=== PATIENT | female | born 2000 | race Caucasian/White ===

== ENCOUNTER 2020-07-23 08:40 | Emergency (ER) | payer OTHER ==
[~2020-07-23] VITALS: Ht 160 cm; Wt 60.9 kg
[2020-07-23 08:50] VITALS: BP 110/75; TEMP 98.1
[2020-07-23 09:29] LABS: BASO # 0.1 (0.0-0.2); BASO % 0.6 % (0.0-2.0); EOS % 0.2 % (0-4.0); GRAN # 9.3 (1.4-6.5); GRAN % 86.7 % (42.2-75.2); HEMATOCRIT 37.9 % (35.0-45.0); HEMOGLOBIN 13.4 g/dl (12.0-15.0); LYMPH % 8.9 % (20.0-51.0); MEAN CELL VOLUME 88 fl (80.0-95.0); MEAN CORPUSCULAR HEMOGLOBIN 31 pg (26.0-32.0); MEAN CORPUSCULAR HGB CONC 35 g/dl (33.0-37.0); MEAN PLATELET VOLUME 9.7 fl (7.4-10.4); MONO # 0.4 (0.1-0.6); MONO % 3.3 % (1.7-9.3); PLATELET COUNT 334 K/mm3 (130-400); RED BLOOD COUNT 4.29 M/mm3 (4.10-5.30); REDCELL DISTRIBUTION WIDTH-CV 11.9 % (11.5-14.5)
[2020-07-23 09:43] LABS: BILIRUBIN,TOTAL 0.7 mg/dL (0.0-1.0); C-REACTIVE PROTEIN 1.2 mg/dL (0.0-0.9); CALCIUM 10.2 mg/dL (8.4-10.2); CREATININE, serum 0.74 (0.52-1.25); POTASSIUM 4.5 mmol/L (3.4-5.0); TOTAL PROTEIN 8.4 gm/dL (6.4-8.2)
[2020-07-23] MEDS ORDERED: BIRTH CONTROL (11:43)
[2020-07-23 11:45] LABS: COLLECTION METHOD CLEAN CATCH
[2020-07-23 11:58] LABS: MUCOUS Present /lpf; PH 6 (5-8); URINE APPEARANCE Hazy; URINE BACTERIA Rare /hpf; URINE BILIRUBIN Negative (NEGATIVE); URINE BLOOD Negative (NEGATIVE); URINE COLOR Yellow; URINE GLUCOSE Negative (NEGATIVE); URINE KETONE 2+ (NEGATIVE); URINE LEUKOCYTE ESTERASE Trace (NEGATIVE); URINE NITRATE Negative (NEGATIVE); URINE PROTEIN(semi-quant) Negative (NEGATIVE); URINE UROBILINOGEN Negative (NEGATIVE)
[2020-07-23] MEDS ORDERED: ZOFRAN ODT4 MG PO (12:33)
[2020-07-23 12:40] VITALS: PULSE 75
== END 2020-07-23 12:40 | disposition home or self-care (01) ==
LOC: COL.ER 08:40
PROVIDERS: Nurse Practitioner
DX: R11.2 Nausea with vomiting, unspecified (principal)
CPT/HCPCS: J2405; J7030